=== PATIENT | male | born 1985 | race Caucasian/White ===

== ENCOUNTER 2023-05-11 12:24 | Emergency (ER) | payer SELFPAY ==
[~2023-05-11] VITALS: Ht 170.1 cm; Wt 77.1 kg
[2023-05-11] MEDS ORDERED: CEPHALEXIN500 M1 PO (12:48)
== END 2023-05-11 13:44 | disposition home or self-care (01) ==
LOC: ED 12:24
DX: S51.011A Laceration without foreign body of right elbow, initial encounter (principal); W22.8XXA Striking against or struck by other objects, initial encounter; Y93.55 Activity, bike riding; Y92.410 Unspecified street and highway as the place of occurrence of the external cause; Y99.8 Other external cause status